=== PATIENT | female | born 1970 | race Caucasian/White ===

== ENCOUNTER 2017-03-06 06:55 | Inpatient (IN) | payer OTHER ==
[~2017-03-06] VITALS: Ht 175.3 cm; Wt 80.6 kg
[2017-03-06] MEDS ORDERED: KETOROLAC TROMETHAMINE 30 MG/ML VIAL IV STA (07:15)
[2017-03-06] MEDS ORDERED: ONDANSETRON INJ 2 MG/ML 2 ML VIAL IV STA ×2 (07:15→09:09)
[2017-03-06] MEDS ORDERED: SODIUM CHLORIDE 0.9% 1000ML 2,000 ML IV STA (07:15)
[2017-03-06 07:39] LABS: BASO % 0.2 %; BASO ABS # 0.01 K/uL (0-0.2); COMPLETE YES; EOS % 1.3 %; HEMATOCRIT 37.9 % (37-47); IG% 0.2 %; LYMPH ABS # 0.59 K/uL (1.2-3.4); MEAN CORPUSCULAR HEMOGLOBIN 31.5 pg (25-34); MEAN CORPUSCULAR HGB CONC 33.5 g/dl (32-36); MEAN PLATELET VOLUME 9.8 fL (7.4-10.4); MONO % 0.6 %; NEUT % 86.7 %; PLATELET COUNT 252 K/uL (130-400); RED BLOOD COUNT 4.03 M/uL (4.2-5.4); WHITE BLOOD COUNT 5.35 K/uL (4.8-10.8)
[2017-03-06] MEDS ORDERED: CLON0.5T3 PO (07:49)
[2017-03-06] MEDS ORDERED: AMPH10TA2 PO (07:49)
[2017-03-06] MEDS ORDERED: FLUO10CA15 PO (07:49)
--- NOTE | 2017-03-06 07:49 | DIAGNOSTIC IMAGING REPORT ---
ABDOMEN AND PELVIS CT WITHOUT CONTRAST CT DOSE: 815.40 mGy.cm HISTORY: Right flank pain. TECHNIQUE: Multiaxial CT images of the abdomen and pelvis were performed without contrast. A dose lowering technique was utilized adhering to the principles of ALARA. COMPARISON STUDY: Abdomen and pelvis CT 04/06/2014. FINDINGS: No fractures within the visualized osseous structures. The unenhanced liver, gallbladder, adrenal glands, and pancreas are unremarkable. A 1.9 cm hypodense lesion within the inferior aspect of the spleen. This is indeterminate on this noncontrast study. Multiple stones within the right kidney with the largest measuring 5 mm. No left renal calculi. Mild right perinephric fat stranding. Moderate right hydroureteronephrosis secondary to an obstructing ureteral 6 mm stone at the level of the iliac vessels. The bladder is unremarkable. There are few small calcifications within the uterus consistent with fibroids. No retroperitoneal lymphadenopathy. No bowel wall thickening or obstruction. Normal appendix. IMPRESSION: 1. A 6 mm obstructing stone within the distal right ureter at the level of the iliac vessels resulting in moderate right hydroureteronephrosis. 2. Right-sided nephrolithiasis. 3. A 1.9 cm hypodense lesion within the spleen. This is indeterminate on this noncontrast study. Electronically signed by: Teddy Wyatt M.D. 03/06/2017 7:47 AM Dictated Date/Time: 03/06/2017 7:40 AM
[2017-03-06 07:56] LABS: BUN/CREATININE RATIO 13.3 (10-20); CALCIUM 8.7 mg/dl (8.5-10.1); POTASSIUM 3.5 mmol/L (3.5-5.1)
[2017-03-06] MEDS ORDERED: TAMS0.4C38 PO (08:00)
[2017-03-06] MEDS ORDERED: OXYC1TAB3 PO (08:00)
--- NOTE | 2017-03-06 08:08 | EMERGENCY ROOM VISIT NOTE ---
History Report prepared by [place]: Nomi Gilmore Under the Supervision of: Miriam EvansO. First contact with patient: 07:04 Chief Complaint: FLANK PAIN Stated Complaint: RT FLANK PAIN,BACK PAIN-HX OF KIDNEY STONES History of Present Illness The patient is a 46 year old female who presents to the Emergency Room with complaints of worsening right sided flank pain for the past two days. The patient states that she has a history of kidney stones, and this feels similar to her other stones. The patient states that she recently had bronchitis, and just got done with prednisone and a Z-pack. She states that she was coughing a lot, and she wasn't sure if the pain was due to this coughing. She now states that she is having bilateral back pain which got much worse last night. She states that the pain is not really moving. The patient additionally states that she has been having some intermittent nausea. She denies any burning with urination or hematuria. The patient states that she still has her appendix, she still has her gall bladder, and she denies any chance of being . Pt denies headache, change in vision, fevers, chest pain, shortness of breath, vomiting, diarrhea, and melena. Source of History: patient Onset: two days ago Position: other (right flank) Timing: worsening Associated Symptoms: + cough, + nausea, + back pain, No urinary symptoms Review of Systems See HPI for pertinent positives & negatives. A total of 10 systems reviewed and were otherwise negative. Past Medical & Surgical Medical Problems: (1) Kidney stone Social History Smoking Status: Never Smoker Marital Status: single Occupation Status: employed Current/Historical Medications Scheduled Amphetamine-Dextroamphetamine 10MG (Adderall 10MG), 10 MG PO DAILY Fluoxetine Hcl (Pmdd) (Prozac), 50 MG PO DAILY Tamsulosin Hcl (Flomax), 0.4 MG PO DAILY Scheduled PRN Clonazepam (Klonopin), 0.5 MG PO BID PRN for Anxiety Oxycodone Immediate Rel Tab (Roxicodone Ir), 5 MG PO Q6H PRN for Pain Allergies Coded Allergies: No Known Allergies (Unverified , 03/06/17) Physical Exam Vital Signs Date Time Temp Pulse Resp B/P (MAP) Pulse Ox O2 Delivery O2 Flow Rate FiO2 03/06/17 10:50 77 104/59 95 Room Air 03/06/17 09:35 86 16 112/61 96 Room Air 03/06/17 08:32 88 18 106/59 99 Room Air 03/06/17 06:58 36.4 75 18 93/60 99 Room Air Physical Exam GENERAL: Sitting up in bed in no acute distress. EYE EXAM: normal conjunctiva OROPHARYNX: no exudate, no erythema, lips, buccal mucosa, and tongue normal and mucous membranes are moist NECK: supple, no nuchal rigidity, no adenopathy, non-tender LUNGS: Clear to auscultation. Normal chest wall mechanics HEART: no murmurs, S1 normal and S2 normal ABDOMEN: Minimal tenderness in the right flank, abdomen soft, normo-active bowel sounds, no masses, no rebound or guarding. BACK: Back is symmetrical on inspection and there is no deformity, no midline tenderness, no CVA tenderness. SKIN: no rashes and no bruising UPPER EXTREMITIES: upper extremities are grossly normal. LOWER EXTREMITIES: No pitting edema. NEURO EXAM: Normal sensorium, cranial nerves II-XII grossly intact, normal speech, no gross weakness of arms, no gross weakness of legs. Gross sensation intact. Medical Decision & Procedures ER Provider Diagnostic Interpretation: Radiology results as stated below per my review and the radiologist's interpretation: ABDOMEN AND PELVIS CT WITHOUT CONTRAST CT DOSE: 815.40 mGy.cm HISTORY: Right flank pain. TECHNIQUE: Multiaxial CT images of the abdomen and pelvis were performed without contrast. A dose lowering technique was utilized adhering to the principles of ALARA. COMPARISON STUDY: Abdomen and pelvis CT 04/06/2014. FINDINGS: No fractures within the visualized osseous structures. The unenhanced liver, gallbladder, adrenal glands, and pancreas are unremarkable. A 1.9 cm hypodense lesion within the inferior aspect of the spleen. This is indeterminate on this noncontrast study. Multiple stones within the right kidney with the largest measuring 5 mm. No left renal calculi. Mild right perinephric fat stranding. Moderate right hydroureteronephrosis secondary to an obstructing ureteral 6 mm stone at the level of the iliac vessels. The bladder is unremarkable. There are few small calcifications within the uterus consistent with fibroids. No retroperitoneal lymphadenopathy. No bowel wall thickening or obstruction. Normal appendix. IMPRESSION: 1. A 6 mm obstructing stone within the distal right ureter at the level of the iliac vessels resulting in moderate right hydroureteronephrosis. 2. Right-sided nephrolithiasis. 3. A 1.9 cm hypodense lesion within the spleen. This is indeterminate on this noncontrast study. Electronically signed by: Teddy Wyatt M.D. 03/06/2017 7:47 AM Dictated Date/Time: 03/06/2017 7:40 AM Laboratory Results 03/06/17 07:20 Red Blood Count 4.03, Mean Corpuscular Volume 94.0, Mean Corpuscular Hemoglobin 31.5, Mean Corpuscular Hemoglobin Concent 33.5, Mean Platelet Volume 9.8, Neutrophils (%) (Auto) 86.7, Lymphocytes (%) (Auto) 11.0, Monocytes (%) (Auto) 0.6, Eosinophils (%) (Auto) 1.3, Basophils (%) (Auto) 0.2, Neutrophils # (Auto) 4.64, Lymphocytes # (Auto) 0.59, Monocytes # (Auto) 0.03, Eosinophils # (Auto) 0.07, Basophils # (Auto) 0.01 03/06/17 07:20 Test 03/06/17 07:20 03/06/17 08:00 03/06/17 09:35 White Blood Count 5.35 K/uL (4.8-10.8) Red Blood Count 4.03 M/uL (4.2-5.4) Hemoglobin 12.7 g/dL (12.0-16.0) Hematocrit 37.9 % (37-47) Mean Corpuscular Volume 94.0 fL (80-100) Mean Corpuscular Hemoglobin 31.5 pg (25-34) Mean Corpuscular Hemoglobin Concent 33.5 g/dl (32-36) Platelet Count 252 K/uL (130-400) Mean Platelet Volume 9.8 fL (7.4-10.4) Neutrophils (%) (Auto) 86.7 % Lymphocytes (%) (Auto) 11.0 % Monocytes (%) (Auto) 0.6 % Eosinophils (%) (Auto) 1.3 % Basophils (%) (Auto) 0.2 % Neutrophils # (Auto) 4.64 K/uL (1.4-6.5) Lymphocytes # (Auto) 0.59 K/uL (1.2-3.4) Monocytes # (Auto) 0.03 K/uL (0.11-0.59) Eosinophils # (Auto) 0.07 K/uL (0-0.5) Basophils # (Auto) 0.01 K/uL (0-0.2) RDW Standard Deviation 42.5 fL (36.4-46.3) RDW Coefficient of Variation 12.5 % (11.5-14.5) Immature Granulocyte % (Auto) 0.2 % Immature Granulocyte # (Auto) 0.01 K/uL (0.00-0.02) Anion Gap 6.0 mmol/L (3-11) Est Creatinine Clear Calc Drug Dose 80.7 ml/min Estimated GFR () 78.8 Estimated GFR (Non- 68.0 BUN/Creatinine Ratio 13.3 (10-20) Calcium Level 8.7 mg/dl (8.5-10.1) Total Bilirubin 1.0 mg/dl (0.2-1) Direct Bilirubin 0.2 mg/dl (0-0.2) Aspartate Amino Transf (AST/SGOT) 13 U/L (15-37) Alanine Aminotransferase (ALT/SGPT) 20 U/L (12-78) Alkaline Phosphatase 50 U/L (45-117) Total Protein 6.4 gm/dl (6.4-8.2) Albumin 3.3 gm/dl (3.4-5.0) Lipase 162 U/L (73-393) Urine Test NEG (NEG) Urine Color YELLOW Urine Appearance CLOUDY (CLEAR) Urine pH 7.5 (4.5-7.5) Urine Specific [place] 1.015 (1.000-1.030) Urine Protein NEG (NEG) Urine Glucose (UA) NEG (NEG) Urine Ketones NEG (NEG) Urine Occult Blood TRACE (NEG) Urine Nitrite POS (NEG) Urine Bilirubin NEG (NEG) Urine Urobilinogen NEG (NEG) Urine Leukocyte Esterase LARGE (NEG) Urine WBC (Auto) >30 /hpf (0-5) Urine RBC (Auto) 0-4 /hpf (0-4) Urine Hyaline Casts (Auto) 10-30 /lpf (0-5) Urine Epithelial Cells (Auto) 20-30 /lpf (0-5) Urine Bacteria (Auto) 4+ (NEG) Laboratory results per my review. Medications Administered Medications (Trade) Dose Ordered Sig/Yoselin Route Start Time Stop Time Status Last Admin Dose Admin Sodium Chloride 2,000 ml @ 999 mls/hr Q2H1M STAT IV 03/06/17 07:15 03/06/17 09:15 DC 03/06/17 07:26 999 MLS/HR Ondansetron HCl (Zofran Inj) 4 mg NOW STAT IV 03/06/17 07:15 03/06/17 07:16 DC 03/06/17 07:25 4 MG Ketorolac Tromethamine (Toradol Inj) 30 mg NOW STAT IV 03/06/17 07:15 03/06/17 07:16 DC 03/06/17 07:25 30 MG Morphine Sulfate (MoRPHine SULFATE INJ) 6 mg NOW STAT IV 03/06/17 09:09 03/06/17 09:11 DC 03/06/17 09:18 6 MG Ondansetron HCl (Zofran Inj) 4 mg NOW STAT IV 03/06/17 09:09 03/06/17 09:11 DC 03/06/17 09:18 4 MG Ceftriaxone Sodium (Rocephin Inj) 1 gm NOW STAT IV 03/06/17 10:24 03/06/17 10:25 DC 03/06/17 10:58 1 GM ED Course ED COURSE: Vital signs were reviewed and showed hypotensive. The patients medical record was reviewed The above diagnostic studies were performed and reviewed. ED treatments and interventions as stated above. 0704: The patient was evaluated in room B2. A complete history and physical examination was performed. 0715: Toradol Inj 30mg IV, Zofran Inj 4mg IV, and Sodium Chloride 2000 ml @ 999 mls/hr IV 0757: I updates the patient, and she states that she follows up with Dr. Villarreal, Urology 0909: Zofran Inj 4mg IV, Morphine Sulfate 6mg IV 1018: I discussed the patent's case with [facility], and she recommends admission. 1024: Rocephin Inj 1gm IV 1111: I reviewed the patient's case with Dr. Cooley. He will evaluate the patient for further management. 1115: Upon reevaluation, the patient is resting.I discussed my findings with the patient and she understands and agrees with the treatment plan. Based on the patients age, coexisting illnesses, exam and lab findings the decision to treat as an inpatient was made. The patient remained stable while under my care. The patient will be evaluated for further management. Medical Decision Differential diagnoses includes but is not limited to gastritis, peptic ulcer disease, GERD, gallbladder disease, pancreatitis, small bowel obstruction, acute coronary syndrome, pericarditis, ischemic bowel, irritable bowel disease, irritable bowel syndrome, appendicitis, diverticulitis, malignancy, hernia, urinary tract infection, torsion, /ectopic , perforation, trauma, infectious. Patient is a 46-year-old female who presents the ER with right flank pain. CT shows a 6 mm distal obstructing stone. UA initially shows an infection but was contaminated. Straight cath was performed and was unchanged from initial UA. Labs included CBC and BMP were unremarkable. Patient was given IV Rocephin with her stone and possible UTI. Discussed case with urology who recommended admission. Discussed case with internal medicine admit the patient for further workup. [place] Drug Monitoring Program Search Results: patient reviewed within database, no issues identified Medication Reconcilliation Current Medication List: was personally reviewed by me Blood Pressure Screening Patient's blood pressure: Low blood pressure Consults Time Called: 1015 Consulting Physician: [facility] Returned Call: [phone] I discussed the patent's case with [facility], and she recommends admission. Additional Consults: Time Called: 1108 Consulted Physician: Dr. Cooley Returned Call: [phone] Additional Comments: I reviewed the patient's case with Dr. Cooley. He will evaluate the patient for further management. Impression Primary Impression: Renal colic on right side Additional Impressions: Ureteral obstruction Urinary tract infection Hydronephrosis Right flank pain Scribe Attestation The scribe's documentation has been prepared under my direction and personally reviewed by me in its entirety. I confirm that the note above accurately reflects all work, treatment, procedures, and medical decision making performed by me. Departure Information Dispostion Being Evaluated By Hospitalist Prescriptions Tamsulosin Hcl (FLOMAX) 0.4 Mg Cap 0.4 MG PO DAILY, #10 CAP Prov: Arthur Marlow, DO 03/06/17 Oxycodone Immediate Rel Tab (ROXICODONE IR) 5 Mg Tab 5 MG PO Q6H Y for Pain, #14 TAB Prov: Arthur Marlow, DO 03/06/17 Referrals RV. Agosto MD (PCP) Problem Qualifiers Additional Impressions: Urinary tract infection Urinary tract infection type: acute cystitis Hematuria presence: with hematuria Qualified Codes: N30.01 - Acute cystitis with hematuria Hydronephrosis Hydronephrosis type: with renal calculous obstruction Qualified Codes: N13.2 - Hydronephrosis with renal and ureteral calculous obstruction
[2017-03-06 08:28] LABS: URINE APPEARANCE CLOUDY (CLEAR); URINE BILIRUBIN NEG (NEG); URINE COLOR DK YELLOW; URINE EPITHELIAL CELL AUTO 20-30 /lpf (0-5); URINE NITRITE POS (NEG); URINE PH 6.5 (4.5-7.5); URINE SPECIFIC GRAVITY 1.025 (1.000-1.030); UROBILINOGEN NEG (NEG); ZZUR CULT IF INDIC CLEAN CATCH YES
[2017-03-06 08:31] LABS: MANUAL MICROSCOPIC REQUIRED? NO; REVIEW REQ? NO
[2017-03-06] MEDS ORDERED: MoRPHine SULFATE 10 MG/ML CARP/VIAL IV STA (09:09)
[2017-03-06 09:55] LABS: URINE APPEARANCE CLOUDY (CLEAR); URINE BILIRUBIN NEG (NEG); URINE COLOR YELLOW; URINE EPITHELIAL CELL AUTO 20-30 /lpf (0-5); URINE NITRITE POS (NEG); URINE PH 7.5 (4.5-7.5); URINE SPECIFIC GRAVITY 1.015 (1.000-1.030); UROBILINOGEN NEG (NEG); ZZURINE CULT IF INDIC CATH YES
[2017-03-06 10:01] LABS: MANUAL MICROSCOPIC REQUIRED? NO; REVIEW REQ? NO
[2017-03-06] MEDS ORDERED: CEFTRIAXONE SOD INJ 1 GM ADDVIAL IV STA (10:24)
[2017-03-06] MEDS ORDERED: ALUMINUM/MAGNESIUM/SIMETH (MAALOX MAX) 30 ML UDC PO PRN (11:15)
[2017-03-06] MEDS ORDERED: ZOLPIDEM TARTRATE 5 MG TAB PO PRN (11:15)
[2017-03-06] MEDS ORDERED: MAGNESIUM HYDROXIDE SUSP 30 ML UDC PO PRN (11:15)
[2017-03-06] MEDS ORDERED: CLONAZEPAM 0.5 MG TAB PO PRN (11:15)
[2017-03-06] MEDS ORDERED: POLYETHYLENE (MIRALAX) 17 GM PACK PO PRN (11:15)
--- NOTE | 2017-03-06 11:30 | DIAGNOSTIC IMAGING REPORT ---
CHEST ONE VIEW PORTABLE HISTORY: pre-op COMPARISON: Chest 04/08/2014. FINDINGS: The lungs are clear. Cardiac silhouette is normal in size. No pleural effusions. No pneumothorax. IMPRESSION: No acute process. Electronically signed by: Teddy Wyatt M.D. 03/06/2017 11:28 AM Dictated Date/Time: 03/06/2017 11:27 AM
[2017-03-06 11:33] VITALS: Ht 175.3 cm; Wt 80.6 kg
--- NOTE | 2017-03-06 11:55 | History and Physical ---
History & Physical Date & Time of Service: Mar 06, 2017 at 11:10 Chief Complaint: Rt Flank Pain,Back Pain-Hx Of Kidney Stones Primary Care Physician: RV. Agosto MD History of Present Illness Source: patient 46 y/o F Hx anxiety, renal calculi previously requiring lithotripsy. Pt presents with moderate to severe pain in her R flank. A CT of the abdomen was obtained showing a distal R calculus with resultant moderate hydronephrosis. She denies fevers or rigors. The pt was recently treated for an upper respiratory infection with Zithro and a Prednisone taper and states that she has a persistent cough without SOB. Past Medical/Surgical History 1) Renal calculi - previous lithotripsy. 2) Anxiety 3) ADHD Family History Father with hypertension - no other significant family history. 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 [employer] Smoking Status: Never Smoker Marital Status: single Occupational Status: employed Multi-Drug Resistant Organisms History of MDRO: No Allergies Coded Allergies: No Known Allergies (Unverified , 03/06/17) Home Medications Scheduled Amphetamine-Dextroamphetamine 10MG (Adderall 10MG), 10 MG PO DAILY Fluoxetine Hcl (Pmdd) (Prozac), 50 MG PO DAILY Tamsulosin Hcl (Flomax), 0.4 MG PO DAILY Scheduled PRN Clonazepam (Klonopin), 0.5 MG PO BID PRN for Anxiety Oxycodone Immediate Rel Tab (Roxicodone Ir), 5 MG PO Q6H PRN for Pain Review of Systems Constitutional: No fever, No chills, No sweats Eyes: No worsening of vision ENT: No hearing loss, No unusual epistaxis, No nasal symptoms Respiratory: + cough, + sputum, No wheezing, No shortness of breath Cardiovascular: No chest pain, No orthopnea, No PND Abdomen: + pain (R flank), No nausea, No vomiting Musculoskeletal: No joint pain Genitourinary - Female: No dysuria, No urinary frequency, No urinary urgency Neurologic: No memory loss, No paralysis, No weakness Psychiatric: No depression symptoms Endocrine: No fatigue Hematologic / Lymphatic: No abnormal bleeding/bruising Integumentary: No rash Allergic / Immunologic: No environmental allergies Physical Exam Vital Signs Date Time Temp Pulse Resp B/P (MAP) Pulse Ox O2 Delivery O2 Flow Rate FiO2 03/06/17 10:50 77 104/59 95 Room Air 03/06/17 09:35 86 16 112/61 96 Room Air 03/06/17 08:32 88 18 106/59 99 Room Air 03/06/17 06:58 36.4 75 18 93/60 99 Room Air General Appearance: WD/WN Head: normocephalic Eyes: normal inspection, PERRL, EOMI ENT: normal ENT inspection, pharynx normal Neck: supple, no JVD Respiratory/Chest: chest non-tender, lungs clear, normal breath sounds, no respiratory distress, no accessory muscle use Cardiovascular: regular rate, rhythm, no edema, no gallop, no JVD, no murmur, normal peripheral pulses Abdomen/GI: normal bowel sounds, non tender, soft (could not elicit flank tenderness) Back: normal inspection, no CVA tenderness, no muscle spasm, normal range of motion Extremities/Musculoskelatal: normal inspection, no calf tenderness, normal capillary refill 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, no motor/sensory deficits, alert, normal mood/affect, normal reflexes, oriented x 3 Skin: normal color, warm/dry, no rash Diagnostics Laboratory Results Results Past 24 Hours Test 03/06/17 07:20 03/06/17 08:00 03/06/17 09:35 Range/Units White Blood Count 5.35 4.8-10.8 K/uL Red Blood Count 4.03 4.2-5.4 M/uL Hemoglobin 12.7 12.0-16.0 g/dL Hematocrit 37.9 37-47 % Mean Corpuscular Volume 94.0 80-100 fL Mean Corpuscular Hemoglobin 31.5 25-34 pg Mean Corpuscular Hemoglobin Concent 33.5 32-36 g/dl Platelet Count 252 130-400 K/uL Mean Platelet Volume 9.8 7.4-10.4 fL Neutrophils (%) (Auto) 86.7 % Lymphocytes (%) (Auto) 11.0 % Monocytes (%) (Auto) 0.6 % Eosinophils (%) (Auto) 1.3 % Basophils (%) (Auto) 0.2 % Neutrophils # (Auto) 4.64 1.4-6.5 K/uL Lymphocytes # (Auto) 0.59 1.2-3.4 K/uL Monocytes # (Auto) 0.03 0.11-0.59 K/uL Eosinophils # (Auto) 0.07 0-0.5 K/uL Basophils # (Auto) 0.01 0-0.2 K/uL RDW Standard Deviation 42.5 36.4-46.3 fL RDW Coefficient of Variation 12.5 11.5-14.5 % Immature Granulocyte % (Auto) 0.2 % Immature Granulocyte # (Auto) 0.01 0.00-0.02 K/uL Sodium Level 140 136-145 mmol/L Potassium Level 3.5 3.5-5.1 mmol/L Chloride Level 106 98-107 mmol/L Carbon Dioxide Level 28 21-32 mmol/L Anion Gap 6.0 3-11 mmol/L Blood Urea Nitrogen 13 7-18 mg/dl Creatinine 1.00 0.60-1.20 mg/dl Est Creatinine Clear Calc Drug Dose 80.7 ml/min Estimated GFR () 78.8 Estimated GFR (Non- 68.0 BUN/Creatinine Ratio 13.3 10-20 Random Glucose 90 70-99 mg/dl Calcium Level 8.7 8.5-10.1 mg/dl Total Bilirubin 1.0 0.2-1 mg/dl Direct Bilirubin 0.2 0-0.2 mg/dl Aspartate Amino Transf (AST/SGOT) 13 15-37 U/L Alanine Aminotransferase (ALT/SGPT) 20 12-78 U/L Alkaline Phosphatase 50 45-117 U/L Total Protein 6.4 6.4-8.2 gm/dl Albumin 3.3 3.4-5.0 gm/dl Lipase 162 73-393 U/L Urine Color [place]K YELLOW YELLOW Urine Appearance CLOUDY CLOUDY CLEAR Urine pH 6.5 7.5 4.5-7.5 Urine Specific [place] 1.025 1.015 1.000-1.030 Urine Protein 1+ NEG NEG Urine Glucose (UA) NEG NEG NEG Urine Ketones TRACE NEG NEG Urine Occult Blood 2+ TRACE NEG Urine Nitrite POS POS NEG Urine Bilirubin NEG NEG NEG Urine Urobilinogen NEG NEG NEG Urine Leukocyte Esterase LARGE LARGE NEG Urine WBC (Auto) >30 >30 0-5 /hpf Urine RBC (Auto) 5-10 0-4 0-4 /hpf Urine Hyaline Casts (Auto) 1-5 10-30 0-5 /lpf Urine Epithelial Cells (Auto) 20-30 20-30 0-5 /lpf Urine Bacteria (Auto) 4+ 4+ NEG Urine Test NEG NEG Microbiology Results 03/06/17 Urine Culture, Received Pending 03/06/17 Urine Culture, Received Pending Diagnostic Radiology 1. A 6 mm obstructing stone within the distal right ureter at the level of the iliac vessels resulting in moderate right hydroureteronephrosis. 2. Right-sided nephrolithiasis. 3. A 1.9 cm hypodense lesion within the spleen. This is indeterminate on this noncontrast study. Impression Assessment and Plan 46 y/o F Hx anxiety, renal calculi previously requiring lithotripsy. Pt presents with moderate to severe pain in her R flank. A CT of the abdomen was obtained showing a distal R calculus with resultant moderate hydronephrosis. She denies fevers or rigors. The pt was recently treated for an upper respiratory infection with Zithro and a Prednisone taper and states that she has a persistent cough without SOB. 1) Obstructing calculus. IVF, pain control, antiemetics provided. Pt is NPO pending a urology consult. 2) Anxiety - cont Clonazepam 3) Upper resp infection - likely resolving - no fever or leukocytosis present - lungs are clear - will monitor Full code - SCDs Total time for this admit including review of labs, meds, imaging - discussion with pt and ER attending - 33 min Level of Care Med/Surg Resuscitation Status FULL RESUSCITATION VTE Prophylaxis Given or contraindicated: SCD's
[2017-03-06] MEDS: D5NSS + 20MEQ KCL 1,000 ML IV SCH ×2 (13:21→20:02)
--- NOTE | 2017-03-06 13:38 | History & Physical Bridge Note ---
H&P Re-Evaluation Bridge Note: I have examined the patient, reviewed the History & Physical and in the interval since the performance of the History & Physical I have noted the following changes of clinical significance: No changes noted
[2017-03-06] MEDS ORDERED: MIDAZOLAM HCL 1 MG/ML 2ML VIAL ONE (13:42)
[2017-03-06] MEDS ORDERED: LIDOCAINE HCL 2% 2 ML VIAL (20MG/ML) ONE (13:42)
[2017-03-06] MEDS ORDERED: PROPOFOL IV EMULSION 10 MG/ML 20 ML VIAL IV ONE (13:42)
[2017-03-06] MEDS ORDERED: FENTANYL CITRATE INJ 50 MCG/1 ML 2 ML VIAL ONE (13:42)
--- NOTE | 2017-03-06 13:42 | Urology Consultation ---
History General Date of Service: Mar 06, 2017. Chief Complaint: Obstructing Stone Primary Care Physician: RV. Agosto MD Pt seen a urologist before?: Yes If yes, why?: Stone History of Present Illness Sudden onset of severe pain radiating into the groin with UTI and burning. Severe coming in waves. Similar to previous stone. +N CT showed obstructing stone and UA positive for nitrite and bacteria. Imaging Imaging: CT Laboratory Labs were reviewed and are within normal limits unless listed below. Labs are available in the chart and at [facility] Problem List Medical Problems: (1) Hydronephrosis Status: Acute (2) Renal colic on right side Status: Acute (3) Right flank pain Status: Acute Past History no pertinent history, anxiety Pt had a problem w anesthesia?: No Past Surgical History: ureteral stent Social History Hx Tobacco Use In Past Year?: No Marital status: single Occupation status: employed History of MDRO No Allergies Coded Allergies: No Known Allergies (Unverified , 03/06/17) Medications Home Medications: Home Meds and Scripts Medications Dose Route/Sig Max Daily Dose Days Date Category Flomax (Tamsulosin Hcl) 0.4 Mg Cap 0.4 Mg PO DAILY 03/06/17 Rx Roxicodone Ir (Oxycodone HCl) 5 Mg Tab 5 Mg PO Q6H PRN 03/06/17 Rx Klonopin (Clonazepam) 0.5 Mg Tab 0.5 Mg PO BID PRN 03/06/17 Reported Adderall 10MG (Amphetamine-Dextroamphetamine 10MG) 1 Tab Tab 10 Mg PO DAILY 03/06/17 Reported Prozac (Fluoxetine Hcl (Pmdd)) 10 Mg Cap 50 Mg PO DAILY 03/06/17 Reported Inpatient Medications: Current Inpatient Medications Medications (Trade) Dose Ordered Sig/Yoselin Route Start Time Stop Time Status Last Admin Dose Admin Acetaminophen (Tylenol Tab) 650 mg Q4H PRN PO 03/06/17 11:15 04/05/17 11:14 Al Hydrox/Mg Hydrox/Simethicone (Maalox Max Susp) 15 ml Q4H PRN PO 03/06/17 11:15 04/05/17 11:14 Magnesium Hydroxide (Milk Of Magnesia Susp) 30 ml Q6H PRN PO 03/06/17 11:15 04/05/17 11:14 Polyethylene (Miralax Powder Packet) 17 gm DAILY PRN PO 03/06/17 11:15 04/05/17 11:14 Zolpidem Tartrate (Ambien Tab) 5 mg HSZ PRN PO 03/06/17 11:15 04/05/17 11:14 Ondansetron HCl (Zofran Inj) 4 mg Q6H PRN IV 03/06/17 11:15 04/05/17 11:14 Hydromorphone HCl (Dilaudid Inj) 1 mg Q3H PRN IV 03/06/17 11:15 03/20/17 11:14 Potassium Chloride/Dextrose/ Sod Cl 1,000 ml @ 150 mls/hr Q6H40M IV 03/06/17 13:30 03/07/17 09:29 03/06/17 13:21 150 MLS/HR Clonazepam (Klonopin Tab) 0.5 mg BID PRN PO 03/06/17 11:15 04/05/17 11:14 Fluoxetine HCl (Prozac Cap) 50 mg DAILY PO 03/07/17 09:00 04/06/17 08:59 Tamsulosin HCl (Flomax Cap) 0.4 mg DAILY PO 03/07/17 09:00 04/06/17 08:59 Fentanyl Citrate (Fentanyl Inj) 50 mcg Q5M PRN IV 03/06/17 13:45 03/06/17 19:00 Ondansetron HCl (Zofran Inj) 4 mg ONE PRN IV 03/06/17 13:45 03/06/17 19:00 Ephedrine Sulfate (EpHEDrine SULFATE INJ) 5 mg Q5M PRN IV 03/06/17 13:45 03/07/17 13:44 UNV Atropine Sulfate (Atropine Sulfate 0.1MG/Ml Inj) 0.5 mg Q1M PRN IV 03/06/17 13:45 03/07/17 13:44 UNV Review of Systems Review of Systems All Other Systems: Reviewed and Negative Physical Exam Vital Signs: Vital Signs Past 12 Hours Date Time Temp Pulse Resp B/P (MAP) Pulse Ox O2 Delivery O2 Flow Rate FiO2 03/06/17 12:30 88 16 112/64 97 Room Air 03/06/17 11:33 Room Air 03/06/17 10:50 77 104/59 95 Room Air 03/06/17 09:35 86 16 112/61 96 Room Air 03/06/17 08:32 88 18 106/59 99 Room Air 03/06/17 06:58 36.4 75 18 93/60 99 Room Air Physical Exam: General Appearance: WD/WN, no apparent distress Eyes: bilateral eyes normal inspection, bilateral eyes PERRL, bilateral eyes EOMI ENT: normal ENT inspection, hearing grossly normal, TMs normal, pharynx normal Neck: supple, no adenopathy, thyroid normal, no JVD Respiratory/Chest: chest non-tender, lungs clear, normal breath sounds, no respiratory distress, no accessory muscle use Cardiovascular: regular rate, rhythm, no edema, no gallop, no JVD, no murmur Extremities: normal range of motion, non-tender, normal inspection, no pedal edema, no calf tenderness, normal capillary refill 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 Assessment & Plan Assessment & Plan Imaging: CT (1) Ureteral obstruction Status: Acute Assessment & Plan: Patient with UTI and Obstruction of kidney. Plan for cystoscopy with possible stent, possible lithotripsy. Will consent and sign and plan for urgent stent placement. Risks and benefits discussed. Continue IV Rocephin.
[2017-03-06] MEDS ORDERED: ATROPINE SULFATE 0.1 MG/ML 5ML SYR IV PRN (13:45)
[2017-03-06] MEDS ORDERED: FENTANYL CITRATE INJ 50 MCG/1 ML 2 ML VIAL IV PRN (13:45)
[2017-03-06] MEDS ORDERED: ONDANSETRON INJ 2 MG/ML 2 ML VIAL IV PRN (13:45)
[2017-03-06] MEDS ORDERED: EpHEDrine SULFATE INJ 50 MG/ML AMP IV PRN (13:45)
[2017-03-06] MEDS ORDERED: CONRAY 30% 150ML BOTTLE ONE (13:45)
[2017-03-06] MEDS ORDERED: KETAMINE HCL INJ 50 MG/ML 10 ML VIAL ONE (14:12)
[2017-03-06] MEDS ORDERED: BELLADONNA/OPIUM SUPP 60 MG SUPP PR ONE ×2 (14:18→14:37)
--- NOTE | 2017-03-06 14:33 | [facility] Operative Report ---
Operative Report Operative Date Mar 06, 2017. Pre-Operative Diagnosis Right Obs Ureteral Stone Post-Operative Diagnosis Same Procedure(s) Performed Cystoscopy with right stent placement and aspiration of urine right kidney Surgeon [employer] Surgeon(s) None Estimated Blood Loss 0 cc Findings Obst Right mid ureteral stone with significant hydronephrotic drip and cloudy dark urine on aspiration Fluids See Anes Report Specimens Urine Right Renal Pelvis for Culture and Sensitivity Drains 6x26 Double J Right Stent Anesthesia MAC Complication(s) None Disposition Recovery Room / PACU Indications Patient with UTI and obstructing stone on right. Risks and benefits discussed at length for urgent stent placement. Description of Procedure Patient was consented and brought back to the operating room. Patient was placed under anesthesia and into the dorsal lithotomy position. A time out was completed. A 30degree Cystoscope was placed into the bladder and the entire bladder was examined. The UO's were identified. The right was cannulized with a catheter and an aspiration of urine was completed after bypassing the obstructing stone. A wire was then placed. With the wire in place, a 6 x 26 Double J stent was placed. It was confirmed with fluoroscopy. With the stent in place, the bladder was emptied. The scope was removed. The patient was cleaned, aroused from anesthesia, and transferred to the pacu in stable condition having tolerated the procedure well with no complications. I was present and participated in all aspects of the procedure. The patient will be monitored in the PACU until transferred to the floor. Will likely need 7-10 days of abx depending on culture. Will then need stone treated after resolution of UTI. I attest to the content of the Intraoperative Record and any orders documented therein. Any exceptions are noted below.
--- NOTE | 2017-03-06 14:37 | DIAGNOSTIC IMAGING REPORT ---
KUB CLINICAL HISTORY: cystoscopy, stent placement TECHNIQUE: Image intensifier COMPARISON STUDY: None FINDINGS: Image intensifier was utilized intraoperatively for a right ureteral stent placement IMPRESSION: Right ureteral stent placement The above report was generated using voice recognition software. It may contain grammatical, syntax or spelling errors. Electronically signed by: German Schultz M.D. 03/06/2017 2:35 PM Dictated Date/Time: 03/06/2017 2:34 PM
[2017-03-06] MEDS ORDERED: PHEN-775 PO (14:38)
[2017-03-06] MEDS ORDERED: OXYC-57 PO (14:38)
[2017-03-06] MEDS ORDERED: CEPH500C2 PO (14:38)
--- NOTE | 2017-03-06 14:55 | Anesthesiology Progress Note ---
Anesthesia Post Op Note Date & Time Mar 06, 2017 at 14:54 Vital Signs Pain Intensity: 0 Vital Signs Past 12 Hours Date Time Temp Pulse Resp B/P (MAP) Pulse Ox O2 Delivery O2 Flow Rate FiO2 03/06/17 14:51 108/64 03/06/17 14:47 92 15 03/06/17 14:47 92 15 99 03/06/17 14:46 113/70 03/06/17 14:42 83 14 03/06/17 14:42 78 14 99 03/06/17 14:41 112/70 03/06/17 14:37 87 17 98 03/06/17 14:37 87 17 03/06/17 14:36 112/64 03/06/17 14:33 103/54 03/06/17 14:32 36.7 82 16 113/70 (75) 95 Mask 10 03/06/17 14:32 80 14 03/06/17 14:32 78 14 97 03/06/17 12:30 88 16 112/64 97 Room Air 03/06/17 11:33 Room Air 03/06/17 10:50 77 104/59 95 Room Air 03/06/17 09:35 86 16 112/61 96 Room Air 03/06/17 08:32 88 18 106/59 99 Room Air 03/06/17 06:58 36.4 75 18 93/60 99 Room Air Notes Mental Status: alert / awake / arousable, participated in evaluation Pt Amnestic to Procedure: Yes Nausea / Vomiting: adequately controlled Pain: adequately controlled Airway Patency, RR, SpO2: stable & adequate BP & HR: stable & adequate Hydration State: stable & adequate Anesthetic Complications: no major complications apparent
[2017-03-06 15:15] VITALS: BP 100/60; PULSE 71; TEMP 36.9; O2SAT 94
[2017-03-06] MEDS: ACETAMINOPHEN 325 MG TAB PO PRN (15:26)
[2017-03-06 15:44] VITALS: BP 111/63; PULSE 67; TEMP 36.5; O2SAT 97
[2017-03-06 16:15] VITALS: BP 108/69; PULSE 81; TEMP 36.8; O2SAT 97
[2017-03-06 17:15] VITALS: BP 107/66; PULSE 67; TEMP 36.7; O2SAT 97
[2017-03-06 18:14] VITALS: BP 107/65; PULSE 73; TEMP 36.8; O2SAT 97
[2017-03-06] MEDS: ONDANSETRON INJ 2 MG/ML 2 ML VIAL IV PRN (20:48)
[2017-03-06] MEDS: HYDROmorphone INJ 1 MG/ML SYR IV PRN (20:49)
[2017-03-06 23:30] VITALS: BP 121/74; PULSE 85; TEMP 37.6; TEMP 37.7; O2SAT 95
[2017-03-07] MEDS: HYDROmorphone INJ 1 MG/ML SYR IV PRN (02:27)
[2017-03-07] MEDS: ONDANSETRON INJ 2 MG/ML 2 ML VIAL IV PRN ×2 (02:27→14:11)
[2017-03-07] MEDS: ACETAMINOPHEN 325 MG TAB PO PRN (02:39)
[2017-03-07] MEDS: D5NSS + 20MEQ KCL 1,000 ML IV SCH (02:41)
[2017-03-07 03:10] VITALS: BP 113/64; PULSE 93; TEMP 37.2; O2SAT 93
[2017-03-07 07:13] VITALS: BP 99/60; PULSE 74; TEMP 36.9; O2SAT 96
--- NOTE | 2017-03-07 08:21 | Progress Note ---
Subjective Date of Service: Mar 07, 2017. Subjective Pt evaluation today including: conversation w/ patient, chart review, lab review Voiding: no voiding problems 46 yo female s/p right ureteral stent placement for 6mm right ureteral stone. Pt reports some intermittent right back pain. She reports the Dilaudid is giving her a headache. + slight hematuria. Denies dysuria. + nausea. Denies vomiting. UC&S preliminarily growing gram negative bacilli. Problem List Medical Problems: (1) Hydronephrosis Status: Acute (2) Renal colic on right side Status: Acute (3) Right flank pain Status: Acute (4) Ureteral obstruction Status: Acute (5) Urinary tract infection Status: Acute Review of Systems Constitutional: No fever, No chills Respiratory: No shortness of breath Cardiac: No chest pain Abdomen: + see HPI, + nausea, No pain, No vomiting Musculoskeletal: + see HPI, + problem reported (right back pain ) Female : + hematuria, No dysuria Heme: No abnormal bleeding/bruising Objective Vital Signs Date Time Temp Pulse Resp B/P (MAP) Pulse Ox O2 Delivery O2 Flow Rate FiO2 03/07/17 07:13 36.9 74 16 99/60 (73) 96 Room Air 03/07/17 03:10 37.2 93 16 113/64 (80) 93 Room Air 03/06/17 23:30 37.6 85 16 121/74 (90) 95 Room Air 03/06/17 23:30 37.7 03/06/17 19:45 Room Air 03/06/17 18:14 36.8 73 17 107/65 (79) 97 Room Air 03/06/17 17:15 36.7 67 16 107/66 (80) 97 Room Air 03/06/17 16:15 36.8 81 18 108/69 (82) 97 Room Air 03/06/17 15:44 36.5 67 18 111/63 (79) 97 Room Air 03/06/17 15:15 36.9 71 16 100/60 (73) 94 Room Air 03/06/17 15:07 71 13 03/06/17 15:07 73 13 99 03/06/17 15:06 108/63 03/06/17 15:02 70 17 03/06/17 15:02 68 17 99 03/06/17 15:01 110/71 03/06/17 14:57 73 15 100 03/06/17 14:57 73 15 03/06/17 14:56 118/69 03/06/17 14:52 76 14 03/06/17 14:52 75 14 100 03/06/17 14:52 36.9 74 17 108/64 (74) 100 Nasal Cannula 2 03/06/17 14:51 108/64 03/06/17 14:47 92 15 03/06/17 14:47 92 15 99 03/06/17 14:46 113/70 03/06/17 14:42 83 14 03/06/17 14:42 78 14 99 03/06/17 14:41 112/70 03/06/17 14:37 87 17 98 03/06/17 14:37 87 17 03/06/17 14:36 112/64 03/06/17 14:33 103/54 03/06/17 14:32 36.7 82 16 113/70 (75) 95 Mask 10 03/06/17 14:32 80 14 03/06/17 14:32 78 14 97 03/06/17 12:30 88 16 112/64 97 Room Air 03/06/17 11:33 Room Air 03/06/17 10:50 77 104/59 95 Room Air 03/06/17 09:35 86 16 112/61 96 Room Air 03/06/17 08:32 88 18 106/59 99 Room Air Physical Exam General Appearance: no apparent distress Eyes: normal inspection ENT: hearing grossly normal Neck: no JVD Respiratory/Chest: no respiratory distress, no accessory muscle use Cardiovascular: no JVD Extremities: normal inspection Neurologic/Psychiatric: alert, normal mood/affect, oriented x 3 Skin: normal color Laboratory Results Last 24 Hours Test 03/06/17 09:35 Urine Color YELLOW Urine Appearance CLOUDY Urine pH 7.5 Urine Specific [place] 1.015 Urine Protein NEG Urine Glucose (UA) NEG Urine Ketones NEG Urine Occult Blood TRACE Urine Nitrite POS Urine Bilirubin NEG Urine Urobilinogen NEG Urine Leukocyte Esterase LARGE Urine WBC (Auto) >30 /hpf Urine RBC (Auto) 0-4 /hpf Urine Hyaline Casts (Auto) 10-30 /lpf Urine Epithelial Cells (Auto) 20-30 /lpf Urine Bacteria (Auto) 4+ Assessment and Plan (1) Ureteral obstruction POD #1 s/p right ureteral stent placement for right ureteral stone The pt is currently afebrile. Will provide PO Percocet and Pyridium to help manage stent discomfort. Continue IV abx pending culture sensitivity. Continue Flomax. Recommend she remain inpatient until culture sensitivities return and can be transitioned to the appropriate PO abx. Will arrange for outpatient f/u next week. Definitive stone management with ESWL or URS once infection has been adequately treated. Will continue to follow along with primary service.
[2017-03-07] MEDS ORDERED: CEFTRIAXONE SOD INJ 1,000 MG in DEXTROSE 5% 50ML 50 ML IV SCH (09:00)
--- NOTE | 2017-03-07 09:19 | DIAGNOSTIC IMAGING REPORT ---
KUB HISTORY: 46 years-old Female right ureteral stone COMPARISON: KUB 03/06/2017, CTA 2016 TECHNIQUE: Single KUB radiograph FINDINGS: Double-J right ureteral stent appears in satisfactory position. Multiple right-sided renal calculi are again seen measuring up to 6 mm. The previously noted 6 mm calculus of the distal right ureter is not definitely seen. No ureteral calculi are identified. Probable bone island of the left transverse process L5. Phleboliths are seen within the pelvis. No bowel obstruction. IMPRESSION: 1. Right ureteral stent in place with previously noted 6 mm calculus of the distal right ureter no longer identified. 2. Right-sided nephrolithiasis. The above report was generated using voice recognition software. It may contain grammatical, syntax or spelling errors. Electronically signed by: Sb Rodriguez M.D. 03/07/2017 9:18 AM Dictated Date/Time: 03/07/2017 9:16 AM
[2017-03-07] MEDS: TAMSULOSIN HCL 0.4 MG CAP PO SCH (09:29)
[2017-03-07] MEDS: FLUOXETINE HCL 10 MG CAP PO SCH (09:29)
[2017-03-07] MEDS: PHENAZOPYRIDINE HCL 200 MG TAB PO PRN (09:30)
[2017-03-07] MEDS: OXYCODONE/ACETAMINOPHEN 5-325 TAB PO PRN ×3 (09:34→23:20)
[2017-03-07 11:58] VITALS: BP 107/66; PULSE 71; TEMP 36.9; O2SAT 97
--- NOTE | 2017-03-07 13:34 | Hospitalist Progress Note ---
Hospitalist Progress Note Date of Service Mar 07, 2017. Subjective Pt evaluation today including: conversation w/ patient, conversation w/ family , physical exam, chart review, lab review, review of studies, review of inpatient medication list Patient seen and evaluated. Had stent placed yesterday. Having waxing and waning pain in the R flank, side, and abdomen. Reports reduced appetite but keeping food down. Awaiting urine culture sensitivities. Is reporting good control of pain at this time. Plan for outpatient follow-up with Urology for stone removal and stent removal Constitutional: No fever, No chills Respiratory: No shortness of breath Cardiovascular: No chest pain Abdomen: + pain (R abdomen/flank), No nausea, No vomiting, No diarrhea, No constipation Musculoskeletal: No calf pain Female : + hematuria, No dysuria Heme: No abnormal bleeding/bruising Medications Current Inpatient Medications Medications (Trade) Dose Ordered Sig/Yoselin Route Start Time Stop Time Status Last Admin Dose Admin Acetaminophen (Tylenol Tab) 650 mg Q4H PRN PO 03/06/17 11:15 04/05/17 11:14 03/07/17 02:39 650 MG Al Hydrox/Mg Hydrox/Simethicone (Maalox Max Susp) 15 ml Q4H PRN PO 03/06/17 11:15 04/05/17 11:14 Magnesium Hydroxide (Milk Of Magnesia Susp) 30 ml Q6H PRN PO 03/06/17 11:15 04/05/17 11:14 Polyethylene (Miralax Powder Packet) 17 gm DAILY PRN PO 03/06/17 11:15 04/05/17 11:14 Zolpidem Tartrate (Ambien Tab) 5 mg HSZ PRN PO 03/06/17 11:15 04/05/17 11:14 Ondansetron HCl (Zofran Inj) 4 mg Q6H PRN IV 03/06/17 11:15 04/05/17 11:14 03/07/17 02:27 4 MG Hydromorphone HCl (Dilaudid Inj) 1 mg Q3H PRN IV 03/06/17 11:15 03/20/17 11:14 03/07/17 02:27 1 MG Clonazepam (Klonopin Tab) 0.5 mg BID PRN PO 03/06/17 11:15 04/05/17 11:14 Fluoxetine HCl (Prozac Cap) 50 mg DAILY PO 03/07/17 09:00 04/06/17 08:59 03/07/17 09:29 50 MG Tamsulosin HCl (Flomax Cap) 0.4 mg DAILY PO 03/07/17 09:00 04/06/17 08:59 03/07/17 09:29 0.4 MG Ceftriaxone Sodium 1000 mg/ Dextrose 60 ml @ 100 mls/hr DAILY IV 03/07/17 09:00 03/17/17 08:59 03/07/17 09:29 100 MLS/HR Oxycodone/ Acetaminophen (Percocet 5-325mg Tab) @ Q4H PRN PO 03/07/17 08:15 03/21/17 08:14 03/07/17 09:34 1 TAB Phenazopyridine HCl (Pyridium Tab) 200 mg TID PRN PO 03/07/17 08:15 04/06/17 08:14 03/07/17 09:30 200 MG Objective Vital Signs Date Time Temp Pulse Resp B/P (MAP) Pulse Ox O2 Delivery O2 Flow Rate FiO2 03/07/17 11:58 36.9 71 16 107/66 (80) 97 Room Air 03/07/17 07:40 Room Air 03/07/17 07:13 36.9 74 16 99/60 (73) 96 Room Air 03/07/17 03:10 37.2 93 16 113/64 (80) 93 Room Air 03/06/17 23:30 37.6 85 16 121/74 (90) 95 Room Air 03/06/17 23:30 37.7 03/06/17 19:45 Room Air 03/06/17 18:14 36.8 73 17 107/65 (79) 97 Room Air 03/06/17 17:15 36.7 67 16 107/66 (80) 97 Room Air 03/06/17 16:15 36.8 81 18 108/69 (82) 97 Room Air 03/06/17 15:44 36.5 67 18 111/63 (79) 97 Room Air 03/06/17 15:15 36.9 71 16 100/60 (73) 94 Room Air 03/06/17 15:07 71 13 03/06/17 15:07 73 13 99 03/06/17 15:06 108/63 03/06/17 15:02 70 17 03/06/17 15:02 68 17 99 03/06/17 15:01 110/71 03/06/17 14:57 73 15 100 03/06/17 14:57 73 15 03/06/17 14:56 118/69 03/06/17 14:52 76 14 03/06/17 14:52 75 14 100 03/06/17 14:52 36.9 74 17 108/64 (74) 100 Nasal Cannula 2 03/06/17 14:51 108/64 03/06/17 14:47 92 15 03/06/17 14:47 92 15 99 03/06/17 14:46 113/70 03/06/17 14:42 83 14 03/06/17 14:42 78 14 99 03/06/17 14:41 112/70 03/06/17 14:37 87 17 98 03/06/17 14:37 87 17 03/06/17 14:36 112/64 03/06/17 14:33 103/54 03/06/17 14:32 36.7 82 16 113/70 (75) 95 Mask 10 03/06/17 14:32 80 14 03/06/17 14:32 78 14 97 Physical Exam General Appearance: WD/WN, no apparent distress Eyes: sclerae normal ENT: hearing grossly normal Neck: supple, no JVD, trachea midline Respiratory/Chest: lungs clear, normal breath sounds, no respiratory distress, no accessory muscle use Cardiovascular: regular rate, rhythm, no gallop, no murmur Abdomen: normal bowel sounds, soft Extremities: no pedal edema, no calf tenderness Neurologic/Psychiatric: alert, oriented x 3 Skin: normal color, warm/dry Assessment and Plan Ms. Badillo is a 46 y/o female with distal R calculus with moderate hydronephrosis. R Distal Calculus with Moderate Hydronephrosis S/P Stent on 03/06: - Plan for outpatient follow-up for stone/stent removal - UCx with gram negative bacilli - covered with Rocephin 1 g IV daily - await sensitivities for oral conversion - Oral and IV pain medication - recommend more oral intake to help monitor tolerance for transition home - Urology following - recommendations reviewed - implement Pyridium Anxiety: STABLE - Prozac 50 mg daily and Clonazepam 0.5 mg BID PRN Recent URI: RESOLVING - No further intervention necessary - monitor for worsening progression DVT Prophylaxis: PEDRO/SCDs; ambulation Disposition: Await oral antibiotic conversion - likely D/C tomorrow Continued [facility] stay due to: multiple IV medications needed Discharge planning: home
[2017-03-07 15:46] VITALS: BP 115/71; PULSE 64; TEMP 36.9; O2SAT 94
[2017-03-07 22:52] VITALS: BP 119/72; PULSE 88; TEMP 37.3; O2SAT 97
[2017-03-08 08:15] VITALS: O2SAT 97
[2017-03-08 08:17] VITALS: BP 116/68; PULSE 60; TEMP 36.7; O2SAT 97
[2017-03-08] MEDS: FLUOXETINE HCL 10 MG CAP PO SCH (08:56)
[2017-03-08] MEDS: TAMSULOSIN HCL 0.4 MG CAP PO SCH (08:56)
[2017-03-08] MEDS: PHENAZOPYRIDINE HCL 200 MG TAB PO PRN (08:58)
[2017-03-08] MEDS ORDERED: CEPHALEXIN MONOHYDRATE 500 MG CAP PO SCH (09:00)
[2017-03-08] MEDS: ACETAMINOPHEN 325 MG TAB PO PRN (09:02)
--- NOTE | 2017-03-08 09:40 | Progress Note ---
Subjective Date of Service: Mar 08, 2017. Subjective Pt evaluation today including: conversation w/ patient, chart review, lab review Voiding: no voiding problems 46 year old female s/p ureteral stent. She reports she is feeling better. Some stent discomfort and nausea but improved. Afebrile. VSS Urine culture positive for pansensitive EColi. She is on IV Rocephin currently. Will switch to oral antibiotic. Problem List Medical Problems: (1) Hydronephrosis Status: Acute (2) Renal colic on right side Status: Acute (3) Right flank pain Status: Acute (4) Ureteral obstruction Status: Acute (5) Urinary tract infection Status: Acute Review of Systems Constitutional: No fever, No chills Eyes: No worsening of vision Respiratory: + cough, No shortness of breath Cardiac: No chest pain Abdomen: + see HPI, + nausea Female : No dysuria Objective Vital Signs Date Time Temp Pulse Resp B/P (MAP) Pulse Ox O2 Delivery O2 Flow Rate FiO2 03/08/17 08:17 36.7 60 16 116/68 (84) 97 Room Air 03/08/17 08:15 97 Room Air 03/08/17 07:15 Room Air 03/07/17 23:10 Room Air 03/07/17 22:52 37.3 88 14 119/72 (88) 97 Room Air 03/07/17 16:27 Room Air 03/07/17 15:46 36.9 64 18 115/71 (86) 94 Room Air 03/07/17 11:58 36.9 71 16 107/66 (80) 97 Room Air Physical Exam General Appearance: WD/WN, no apparent distress ENT: hearing grossly normal Neck: no JVD Respiratory/Chest: no respiratory distress, no accessory muscle use Extremities: no pedal edema, no calf tenderness Neurologic/Psychiatric: alert, normal mood/affect, oriented x 3 Assessment and Plan (1) Ureteral obstruction Doing better. Ok for discharge from urology standpoint. Will follow outpt for stone management. Our office will call to arrange appt. Recommend to d/c home on oxybutynin and pyridium prn for stent discomfort. Zofran prn for nausea, Percocet prn for pain and stay on tamsulosin daily as this can help with stent discomfort. Treat with oral antibiotic for 7-10 days for EColi. Thanks for allowing us to participate in this pt's care. No further management needed. Continued [facility] stay due to: multiple IV medications needed Discharge planning: home
[2017-03-08] MEDS ORDERED: ONDA4TAB10 SL (10:12)
[2017-03-08] MEDS ORDERED: TAMS0.4C38 PO (10:12)
[2017-03-08] MEDS ORDERED: OXYB5TAB74 PO (10:16)
--- NOTE | 2017-03-08 10:23 | Discharge Instructions ---
Discharge Instructions Date of Service Mar 08, 2017. Admission Reason for Admission: Ureteral Obstruction Discharge Discharge Diagnosis / Problem: Ureteral Stone with Stent Placement Discharge Goals Goal(s): Decrease discomfort, Improve function, Increase independence Activity Recommendations Activity Limitations: as noted below Lifting Limitations: gradually increase as tolerated Exercise/Sports Limitations: gradually increase as tolerated Shower/Bathe: no limitations . Instructions / Follow-Up Instructions / Follow-Up R Distal Calculus with Moderate Hydronephrosis with Stent on 03/06: - Plan for outpatient follow-up for stone/stent removal - will be coordinated with the Urologist office - You urine grew out E. coli that is sensitive to all antibiotics - Please continue Keflex 500 mg twice a day until finished -- You received your morning dose today so just take one dose tonight then resume twice a day on 03/09 - You will be provided a prescription for Percocet for pain - You will also be given a prescription for Flomax (this will help relax the muscles in the ureter and help ease some discomfort from the stent) - Also will be given Oxybutynin and Pyridium (this medication can cause your urine to be orange/red) Follow-Up: - Urology next week for the stone removal - Family doctor in 7-10 days if able Current Hospital Diet Patient's current hospital diet: Regular Diet Discharge Diet Recommended Diet: Regular Diet Procedures Procedures Performed: Cystoscopy with right stent placement and aspiration of urine right kidney Pending Studies Studies pending at discharge: no Medical Emergencies . Who to Call and When: Medical Emergencies: If at any time you feel your situation is an emergency, please call 911 immediately. . Non-Emergent Contact Non-Emergency issues call your: Primary Care Provider Call Non-Emergent contact if: you have a fever, your pain is concerning you, you have any medication questions . . "Provider Documentation" section prepared by Keri Ramos. . VTE Core Measure Inpt VTE Proph given/why not?: SCD's [place] Drug Monitoring Program Search Results: patient reviewed within database, no issues identified
[2017-03-08 10:33] VITALS: BP 116/68; PULSE 60; TEMP 36.7; O2SAT 97
--- NOTE | 2017-03-08 14:55 | Discharge Summary ---
Discharge Summary Date of Service Mar 08, 2017. Discharge Summary Admission Date: Mar 06, 2017 at 11:13 Discharge Date: Mar 08, 2017 Discharge Disposition: Home Principal Diagnosis: R Nephrolithiasis with Moderate Hydronephrosis S/P Stent Problems/Secondary Diagnoses: 1. Anxiety 2. ADHD Procedures: ABDOMEN AND PELVIS CT WITHOUT CONTRAST FINDINGS: No fractures within the visualized osseous structures. The unenhanced liver, gallbladder, adrenal glands, and pancreas are unremarkable. A 1.9 cm hypodense lesion within the inferior aspect of the spleen. This is indeterminate on this noncontrast study. Multiple stones within the right kidney with the largest measuring 5 mm. No left renal calculi. Mild right perinephric fat stranding. Moderate right hydroureteronephrosis secondary to an obstructing ureteral 6 mm stone at the level of the iliac vessels. The bladder is unremarkable. There are few small calcifications within the uterus consistent with fibroids. No retroperitoneal lymphadenopathy. No bowel wall thickening or obstruction. Normal appendix. IMPRESSION: 1. A 6 mm obstructing stone within the distal right ureter at the level of the iliac vessels resulting in moderate right hydroureteronephrosis. 2. Right-sided nephrolithiasis. 3. A 1.9 cm hypodense lesion within the spleen. This is indeterminate on this noncontrast study. KUB FINDINGS: Double-J right ureteral stent appears in satisfactory position. Multiple right-sided renal calculi are again seen measuring up to 6 mm. The previously noted 6 mm calculus of the distal right ureter is not definitely seen. No ureteral calculi are identified. Probable bone island of the left transverse process L5. Phleboliths are seen within the pelvis. No bowel obstruction. IMPRESSION: 1. Right ureteral stent in place with previously noted 6 mm calculus of the distal right ureter no longer identified. 2. Right-sided nephrolithiasis. CHEST ONE VIEW PORTABLE FINDINGS: The lungs are clear. Cardiac silhouette is normal in size. No pleural effusions. No pneumothorax. IMPRESSION: No acute process. Consultations: 1. Urology Medication Reconciliation New Medications: Cephalexin Monohydrate (Keflex) 500 Mg Cap 500 MG PO BID for 7 Days, #14 CAP Ondasetron Odt (Zofran Odt) 4 Mg Tab 4 MG SL Q6H PRN for Nausea for 5 Days, #20 TAB Oxybutynin Chloride (Ditropan) 5 Mg Tab 1 TAB PO TID PRN for Bladder pain for 10 Days, #30 TAB 0 Refills Oxycodone/Acetaminophen 5MG/325MG (Percocet 5MG/325MG) Tab 1 TABLET PO Q6H PRN for Pain for 5 Days, #14 TAB Phenazopyridine Hcl (Pyridium) 200 Mg Tab 200 MG PO TID, #6 TAB Continued Medications: Amphetamine-Dextroamphetamine 10MG (Adderall 10MG) 1 Tab Tab 10 MG PO DAILY, TAB Clonazepam (Klonopin) 0.5 Mg Tab 0.5 MG PO BID PRN for Anxiety, TAB Fluoxetine Hcl (Pmdd) (Prozac) 10 Mg Cap 50 MG PO DAILY, CAP Tamsulosin Hcl (Flomax) 0.4 Mg Cap 0.4 MG PO DAILY, #10 CAP (This prescription has been renewed) Discontinued Medications: Oxycodone Immediate Rel Tab (Roxicodone Ir) 5 Mg Tab 5 MG PO Q6H PRN for Pain, #14 TAB Discharge Exam Review of Systems: Constitutional: No fever, No chills Respiratory: + cough, No shortness of breath Cardiovascular: No chest pain Abdomen: + pain (RLQ/R Flank), + nausea, No vomiting, No diarrhea, No constipation Musculoskeletal: No swelling, No calf pain Genitourinary - Female: No dysuria Neurologic: No numbness/tingling, No vertigo Physical Exam: General Appearance: WD/WN, no apparent distress Eyes: sclerae normal ENT: hearing grossly normal, pharynx normal Neck: supple, no JVD, trachea midline Respiratory/Chest: lungs clear, normal breath sounds, no respiratory distress, no accessory muscle use Cardiovascular: regular rate, rhythm, no gallop, no murmur Abdomen / GI: normal bowel sounds, non tender, soft Extremities: no calf tenderness, no pedal edema Neurologic/Psychiatric: alert, oriented x 3 Skin: normal color, warm/dry Hospital Course ADMISSION: 46 y/o F Hx anxiety, renal calculi previously requiring lithotripsy. Pt presents with moderate to severe pain in her R flank. A CT of the abdomen was obtained showing a distal R calculus with resultant moderate hydronephrosis. She denies fevers or rigors. The pt was recently treated for an upper respiratory infection with Zithro and a Prednisone taper and states that she has a persistent cough without SOB. HOSPITAL COURSE: Ms. Badillo was admitted for R nephrolithiasis with moderate hydronephrosis and is S/P stent on 03/06. Urine culture with pansensitive E. coli and was treated with Keflex 500 mg BID. Plan is for outpatient follow-up with urology for stone/stent removal. Home medications were continued as previously prescribed. Additional medications for urinary symptom relief and pain given. Patient is hemodynamically stable and optimal for D/C home with outpatient urology follow-up. Total Time Spent: Greater than 30 minutes This includes examination of the patient, discharge planning, medication reconciliation, and communication with other providers. Discharge Instructions Please refer to the electronic Patient Visit Report (Discharge Instructions) for additional information. Additional Copies To RV. Agosto MD
[2017-04-09] MEDS ORDERED: OXYC-57 PO ×2 (13:01→14:09)
[2017-04-09] MEDS ORDERED: CIPR-255 PO (14:09)
== END 2017-03-08 12:07 | disposition home or self-care (01) | DRG 690 ==
LOC: C.EDB 06:56 → C.MSW 11:13 → EDBEDREQ 11:21 → ENRESERV 11:33
PROVIDERS: ADMIT Internal Medicine; ATTEND Internal Medicine
PROC: 0T768DZ Dilation of Right Ureter with Intraluminal Device, Via Natural or Artificial Opening Endoscopic (ICD-10-PCS; principal; 2017-03-06 14:00)
DX: N13.6 Pyonephrosis (principal); B96.20 Unspecified Escherichia coli [E. coli] as the cause of diseases classified elsewhere; F41.9 Anxiety disorder, unspecified; F90.9 Attention-deficit hyperactivity disorder, unspecified type; J06.9 Acute upper respiratory infection, unspecified; R31.9 Hematuria, unspecified; Z79.899 Other long term (current) drug therapy; Z82.49 Family history of ischemic heart disease and other diseases of the circulatory system

== ENCOUNTER → 2017-03-23 | Outpatient (CLI) | payer OTHER ==
[~2017-03-23] MED LIST: AMPH10TA2 PO; CIPR-255 PO; CLON0.5T3 PO; FLUO10CA15 PO; OXYB5TAB74 PO; OXYC-57 PO; TAMS0.4C38 PO
[2017-03-23 08:52] LABS: CHOLESTEROL/HDL RATIO 2.5
== END | disposition home or self-care (01) ==
LOC: C.LAB 07:34
PROVIDERS: ATTEND Internal Medicine
DX: Z13.1 Encounter for screening for diabetes mellitus (principal); Z13.220 Encounter for screening for lipoid disorders

== ENCOUNTER → 2017-03-28 | Outpatient (CLI) | payer OTHER ==
[~2017-03-28] MED LIST changes: -OXYB5TAB74 PO; -TAMS0.4C38 PO
[2017-03-28 12:07] LABS: BASO % 1.9 %; COMPLETE YES; EOS % 3.5 %; HEMATOCRIT 39.1 % (37-47); IG% 0.4 %; LYMPH % 38.5 %; MEAN CELL VOLUME 94.7 fL (80-100); MEAN CORPUSCULAR HGB CONC 32.7 g/dl (32-36); MEAN PLATELET VOLUME 10.3 fL (7.4-10.4); MONO % 8.7 %; PLATELET COUNT 431 K/uL (130-400); RED BLOOD COUNT 4.13 M/uL (4.2-5.4); WHITE BLOOD COUNT 5.19 K/uL (4.8-10.8)
[2017-03-28 12:14] LABS: URINE APPEARANCE CLOUDY (CLEAR); URINE COLOR ORANGE; URINE EPITHELIAL CELL AUTO >30 /lpf (0-5); URINE NITRITE NEG (NEG); URINE PH 6.5 (4.5-7.5); URINE SPECIFIC GRAVITY 1.026 (1.000-1.030); UROBILINOGEN NEG (NEG)
[2017-03-28 12:28] LABS: MANUAL MICROSCOPIC REQUIRED? NO; REVIEW REQ? YES
[2017-03-28 12:35] LABS: BLOOD UREA NITROGEN 16 mg/dl (7-18); BUN/CREATININE RATIO 20.5 (10-20); CARBON DIOXIDE 28 mmol/L (21-32); CHLORIDE 107 mmol/L (98-107); CREATININE 0.78 mg/dl (0.60-1.20); GLUCOSE 68 mg/dl (70-99); POTASSIUM 3.9 mmol/L (3.5-5.1); SODIUM 139 mmol/L (136-145)
[2017-03-28 12:40] LABS: URINE BILIRUBIN NEG (NEG)
== END | disposition home or self-care (01) ==
LOC: C.LAB 11:05
PROVIDERS: ATTEND Urology
DX: N13.30 Unspecified hydronephrosis (principal); N20.0 Calculus of kidney

== ENCOUNTER 2017-04-09 12:20 | Day surgery (SDC) | payer OTHER ==
[2017-03-26 14:38] VITALS: BMI 27.0
[~2017-04-09] VITALS: Ht 170.2 cm; Wt 80.4 kg
[~2017-04-09 12:20] MED LIST changes: -CIPR-255 PO; +CIPROFLOXACIN / D5W 400 MG IV SCH; +LACTATED RINGER'S 1000ML 1,000 ML IV SCH; -OXYC-57 PO
[2017-04-09 12:50] VITALS: BP 119/67; PULSE 62; TEMP 36.6; O2SAT 100; Ht 170.2 cm; Wt 80.4 kg
[2017-04-09] MEDS ORDERED: OXYC-57 PO ×2 (13:01→14:09)
[2017-04-09] MEDS ORDERED: ATROPINE SULFATE 0.1 MG/ML 5ML SYR IV PRN (13:15)
[2017-04-09] MEDS ORDERED: MEPERIDINE HCL 25 MG/ML CARP IV PRN (13:15)
[2017-04-09] MEDS ORDERED: EpHEDrine SULFATE INJ 50 MG/ML AMP IV PRN (13:15)
[2017-04-09] MEDS ORDERED: FLUMAZENIL 0.1 MG/1 ML 10 ML VIAL IV PRN (13:15)
[2017-04-09] MEDS ORDERED: HYDROmorphone INJ 2 MG/ML SYR/VIAL IV PRN (13:15)
[2017-04-09] MEDS ORDERED: NALOXONE HCL 0.4 MG/1 ML VIAL/CARP IV PRN (13:15)
[2017-04-09] MEDS ORDERED: PHENYLEPHRINE 100MCG/ML 5ML SYR IV PRN (13:15)
[2017-04-09] MEDS ORDERED: FENTANYL CITRATE INJ 50 MCG/1 ML 2 ML VIAL IV PRN (13:15)
[2017-04-09] MEDS ORDERED: ONDANSETRON INJ 2 MG/ML 2 ML VIAL IV PRN (13:15)
[2017-04-09] MEDS ORDERED: LABETALOL HCL IV 5 MG/ML 20ML IV PRN (13:15)
[2017-04-09] MEDS ORDERED: FENTANYL CITRATE INJ 50 MCG/1 ML 2 ML VIAL ONE (13:36)
[2017-04-09] MEDS ORDERED: MIDAZOLAM HCL 1 MG/ML 2ML VIAL ONE (13:36)
[2017-04-09] MEDS ORDERED: CONRAY 30% 150ML BOTTLE ONE (13:56)
[2017-04-09] MEDS ORDERED: CIPR-255 PO (14:09)
--- NOTE | 2017-04-09 14:11 | Discharge Instructions ---
Discharge Instructions Date of Service Apr 09, 2017. Admission Reason for Admission: Stones Discharge Discharge Diagnosis / Problem: stones Discharge Goals Goal(s): Decrease discomfort, Improve function, Increase independence, Improve disease control, Prevent Disease Progression Activity Recommendations Activity Limitations: resume your previous activity Lifting Limitations: none Exercise/Sports Limitations: none May Resume Sexual Activity: when tolerated Shower/Bathe: no limitations Driving or Machine Use: resume 1 day after discharge . Instructions / Follow-Up Instructions / Follow-Up Please keep your previously scheduled follow up appointment with Dr. Villarreal for stent removal Discharge Diet Recommended Diet: Regular Diet Pending Studies Studies pending at discharge: no Laboratory Results Lipid Panel Test 03/23/17 07:38 Range/Units Triglycerides Level 62 0-150 mg/dl Cholesterol Level 199 0-200 mg/dl HDL Cholesterol 80 mg/dl Cholesterol/HDL Ratio 2.5 LDL Cholesterol, Calculated 107 mg/dl Medical Emergencies . Who to Call and When: Medical Emergencies: If at any time you feel your situation is an emergency, please call 911 immediately. . Non-Emergent Contact Non-Emergency issues call your: Urologist Call Non-Emergent contact if: you have a fever, temperature is above 101.5, your pain is not controlled, your pain is worsening . . "Provider Documentation" section prepared by Joseph Yang. . VTE Core Measure Inpt VTE Proph given/why not?: Treatment not indicated [place] Drug Monitoring Program Search Results: patient reviewed within database, no issues identified Drug Monitoring Findings: numerous prior rxs for clonazepam, but limited rxs for pain meds
[2017-04-09] MEDS ORDERED: ONDANSETRON INJ 2 MG/ML 2 ML VIAL ONE (14:21)
[2017-04-09] MEDS ORDERED: PROPOFOL IV EMULSION 10 MG/ML 20 ML VIAL IV ONE (14:21)
[2017-04-09] MEDS ORDERED: KETOROLAC TROMETHAMINE 30 MG/ML VIAL ONE (14:21)
[2017-04-09] MEDS ORDERED: LIDOCAINE HCL 2% 2 ML VIAL (20MG/ML) ONE (14:21)
[2017-04-09] MEDS ORDERED: DEXAMETHASONE SOD INJ 4 MG/ML VIAL ONE (14:21)
[2017-04-09] MEDS ORDERED: SODIUM CHLORIDE 0.9% 1000ML 1,000 ML IV SCH ×2 (14:48→14:54)
--- NOTE | 2017-04-09 14:54 | [facility] Operative Report ---
Operative Report Operative Date Apr 09, 2017. Pre-Operative Diagnosis Hydronephrosis of right kidney, right kidney stones Post-Operative Diagnosis Same as preoperative diagnosis Procedure(s) Performed Cystoscopy, Right Ureteroscopy, Laser Lithotripsy; Right Ureteral Stent Exchange ([id number]); Right retrograde pyelogram Surgeon Dr. Daniele Villarreal Communications Department Chairperson Surgeon(s) None Estimated Blood Loss 0 mL Findings Right ureteral stone; right renal stone Specimens Permanent specimens A: Right ureteral stone for chemical analysis Drains [id number] Anesthesia Gen Complication(s) None Disposition Recovery Room / PACU (stable) Indications Right renal stone; prior episode of sepsis Description of Procedure Patient was identified in the preoperative holding area, appropriate informed consent reviewed and completed and the patient was transported to the operating suite. Upon arrival she received appropriate preoperative antibiotics the form of ciprofloxacin. Adequate general anesthesia was achieved and she was placed in dorsal lithotomy position where she was sterilely prepped and draped in standard fashion. To begin the case, I passed a 22 Kenyan cystoscope with 30 lens. Inspection of the bladder revealed a healthy-appearing bladder mucosa with a right ureteral stent seen protruding from the right ureteral orifice. The distal aspect of the stent was grasped with a grasper and withdrawn to the meatus. Uroscopic evaluation of the upper aspect of the stent revealed appropriate on curling of this proximal stent. A wire was used to intubate the stent and the wire was advanced the kidney under fluoroscopic guidance. A 10 Kenyan double-lumen catheter was advanced over the wire and then a second wire placed into the kidney. I withdrew the 10 Kenyan double-lumen catheter before passing a flexible ureteroscope into the kidney. Full renoscopy was carried out. There were 2 stones identified it in a bit of floating matrix type material within the renal pelvis. I was able to separate the stones themselves from this other floating material, and fragment these to pieces deemed safe for spontaneous passage. I then performed a repeat renoscopy confirming no other retained fragments within the kidney. A careful exit ureteroscopy was performed which revealed a midureteral stone consistent with the stones seen on her initial admission CT. I fragmented the stone entirely and irrigated pieces out of the ureter. I completed my exit ureteroscopy revealing no other large retained fragments. Before concluding the case, I opacified the collecting system with a retrograde pyelogram which revealed mild dilation but no filling defects or perforations. I then placed a 6 Kenyan 26 cm double-J ureteral stent over the existing safety wire. A good curl was seen in the kidney as well as the bladder. The bladder was decompressed. A small stone fragment was gathered from the bladder and passed off the table for analysis. Patient was subsequently reversed from anesthesia and taken to the PACU in stable condition. I attest to the content of the Intraoperative Record and any orders documented therein. Any exceptions are noted below.
[2017-04-09] MEDS ORDERED: ACETAMINOPHEN 325 MG TAB PO PRN (15:00)
[2017-04-09] MEDS ORDERED: OXYCODONE/ACETAMINOPHEN 5-325 TAB PO PRN ×4 (15:00)
--- NOTE | 2017-04-09 15:29 | Anesthesiology Progress Note ---
Anesthesia Post Op Note Date & Time Apr 09, 2017 at 15:29 Vital Signs Pain Intensity: 0 Vital Signs Past 12 Hours Date Time Temp Pulse Resp B/P (MAP) Pulse Ox O2 Delivery O2 Flow Rate FiO2 04/09/17 15:20 36.1 57 12 119/81 100 Room Air 04/09/17 15:10 36.1 62 12 128/72 100 Oxymask 10 04/09/17 15:00 36.1 60 12 118/73 100 Oxymask 10 04/09/17 14:52 36.1 61 12 143/91 100 Oxymask 10 04/09/17 12:50 36.6 62 18 119/67 (84) 100 Room Air Notes Mental Status: alert / awake / arousable, participated in evaluation Pt Amnestic to Procedure: Yes Nausea / Vomiting: adequately controlled Pain: adequately controlled Airway Patency, RR, SpO2: stable & adequate BP & HR: stable & adequate Hydration State: stable & adequate Anesthetic Complications: no major complications apparent
[2017-04-09 15:40] VITALS: BP 122/71; PULSE 60; TEMP 36.4; O2SAT 100
[2017-04-09 16:10] VITALS: BP 127/72; PULSE 66; O2SAT 98
[2017-04-09 16:40] VITALS: BP 138/81; PULSE 78; TEMP 36.3; O2SAT 99
== END 2017-04-09 16:52 | disposition home or self-care (01) ==
LOC: C.ACU 12:20
PROVIDERS: ATTEND Urology
DX: N13.2 Hydronephrosis with renal and ureteral calculous obstruction (principal); F41.8 Other specified anxiety disorders; R35.0 Frequency of micturition; Z79.899 Other long term (current) drug therapy

== ENCOUNTER → 2017-04-16 | Outpatient (CLI) | payer OTHER ==
[~2017-04-16] MED LIST changes: +CIPR-255 PO; -CIPROFLOXACIN / D5W 400 MG IV SCH; -LACTATED RINGER'S 1000ML 1,000 ML IV SCH; +OXYC-57 PO
--- NOTE | 2017-04-16 14:01 | DIAGNOSTIC IMAGING REPORT ---
KUB CLINICAL HISTORY: N20.0 Kidney [id number] COMPARISON STUDY: 03/07/2017 FINDINGS: There are proximally 10 midpole right renal calculi. These measure 15 mm in aggregate. There is a double-pigtail right-sided nephroureteral stent. No calcifications along the course of either ureter are visualized. There is no pathologic bowel dilatation. IMPRESSION: 1. Right-sided nephrolithiasis 2. No change in the position of the right-sided nephroureteral stent Electronically signed by: Sharif Clarke M.D. 04/16/2017 2:00 PM Dictated Date/Time: 04/16/2017 1:59 PM
== END | disposition home or self-care (01) ==
LOC: C.RAD 13:34
PROVIDERS: ATTEND Urology
DX: N20.0 Calculus of kidney (principal)